=== PATIENT | male | born 2005 | race Caucasian/White ===

== ENCOUNTER 2024-06-14 09:21 | Emergency (ER) | payer MEDICAID, OTHER ==
[2024-06-14] MEDS: Ketorolac 30 MG/ML SDV IM ONE (10:00)
[2024-06-14] MEDS ORDERED: Sodium Chloride 0.9% 10 ML Syringe FLUSH PRN (10:30)
[2024-06-14] MEDS: Ketamine 200 MG/20 ML MDV IVPUSH ONE (10:39)
[2024-06-14] MEDS: Propofol 200 MG/20 ML SDV IVPUSH ONE (10:39)
== END 2024-06-14 12:25 | disposition home or self-care (01) ==
LOC: JD.ED 09:21
DX: S53.104A Unspecified dislocation of right ulnohumeral joint, initial encounter (principal); X50.1XXA Overexertion from prolonged static or awkward postures, initial encounter; Y93.89 Activity, other specified
CPT/HCPCS: 24600; 73070; 73080; 94762; 99152; 99283; J2704; J3490; 24605; 99284